=== PATIENT | male | born 1980 | race Caucasian/White ===

== ENCOUNTER 2020-10-16 19:41 | Emergency (ER) | payer BC, SELFPAY ==
[2020-10-16 19:43] VITALS: BP 128/80; PULSE 84; RESP 18; TEMP 37.2; O2SAT 98; BMI 23.7
[2020-10-16 19:52] VITALS: BMI 23.7
--- NOTE | 2020-10-16 19:55 | CT_ITS ---
PROCEDURE: CT ABDOMEN PELVIS W CON CLINICAL INDICATION: TAL ABD pain with nausea Right upper quadrant pain with nausea and diarrhea, left upper quadrant pain COMPARISON: No exams were available for comparison TECHNIQUE: IV Contrast: 75ML Isovue 370 Oral Contrast None Axial images obtained with sagittal and coronal reformats. All CT scans at the facility use one or more dose reduction, viz: automated exposure control, ma/kV adjustment per patient size (including targeted exams where dose is matched to indication, i.e. head), or iterative reconstruction technique. FINDINGS: LOWER THORAX: 7 mm nodular opacity is present in the right lung base laterally possibly due to an area of atelectasis.. ABDOMEN & PELVIS: Mild hepatic steatosis. 1 cm low-density lesion within the posterior superior aspect of the right hepatic lobe and a 6 mm low-density lesion within the anterior superior right hepatic lobe. The spleen, adrenal glands, pancreas, and kidneys have an unremarkable appearance. No evidence of appendicitis or diverticulitis. No intestinal obstruction or free air. No pelvic mass or abnormal fluid collection. Prior vasectomy. Suspect small bone islands in the left femoral head and left and right ischium. IMPRESSION: 1. No acute finding. 2. There are 2 nonspecific hypodense hepatic lesions within segment 7 and 8 possibly due to hemangiomas. Nonemergent MRI may confirm with hemangioma protocol if clinically warranted 3. 7 mm right lower lobe nodular opacity possibly due to atelectatic change. Follow-up may confirm. Dictated by: Kaiden Orozco MD 10/17/2020 06:25 Kaiden Orozco MD in [place] 10/17/2020 06:25
[2020-10-16 20:02] LABS: Microscopic, Urine URINE MICROSCOPIC (MICROSCOPIC)
[2020-10-16 20:08] LABS: Appearance,Urine CLEAR (Clear); Bilirubin,Urine Negative (Negative); Blood, Urine TRACE-I (Negative); Color,Urine YELLOW (Yellow); Glucose,Urine (UA) Negative (Negative); Ketones,Urine Negative (Negative); Leukocyte Esterase,Urine Negative (Negative); Nitrate,Urine Negative (Negative); Protein,Urine Negative (Negative); Specific Gravity, Urine >= 1.030 (1.005-1.030); Urobilinogen,Urine 0.2 EU/dl (0.2)
[2020-10-16 20:09] LABS: Chloride 102 mmol/L (98-107); Sodium 139 mmol/L (136-145)
--- NOTE | 2020-10-16 20:10 | PC.NURSE ---
Pt completed oral contrast, Radiology notified of completion time
[2020-10-16 20:12] LABS: Alanine Aminotransferase 29 U/L (12-78); Albumin Level 4.7 g/dl (3.5-5.0); Albumin/Globulin Ratio 1.2 (1.1-1.8); Alkaline Phosphatase 80 U/L (38-126); Aspartate Amino Transferase 34 U/L (17-59); Bilirubin,Direct 0.1 mg/dl (0.0-0.4); Bilirubin,Indirect 0.3 mg/dL (0.0-0.9); Bilirubin,Total 0.4 mg/dl (0.2-1.3); Bilirubin,Unconjugated 0.2 mg/dL (0.0-1.1); Blood Urea Nitrogen 22 mg/dl (9-20); Calcium 9.8 mg/dl (8.4-10.2); Carbon Dioxide 29 mmol/L (22.0-30.0); Creatinine Clearance Estimated 120 mL/min (50-200); Estimated Glomerular Filt Rate 83 ml/min (>60); GFR (African American) 100 ML/MIN (>60); Globulin 3.8 g/dL (1.3-3.2); Glucose 162 mg/dl (74-100); Total Protein,Serum 8.5 g/dl (6.3-8.2)
[2020-10-16 20:12] LABS: RBC,Urine Occasional #/hpf (0-3); WBC,Urine Occasional #/hpf (0-3)
[2020-10-16 20:13] VITALS: BP 119/76; PULSE 79
[2020-10-16 20:16] LABS: Basophils # 0.1 K/mm3 (0-0.2); Basophils % 1.1 % (0.1-2.0); Eosinophils # 0.1 K/mm3 (0.0-0.4); Eosinophils % 2.1 % (0.1-12.0); Hematocrit 48.5 % (42.0-52.0); Hemoglobin 15.4 g/dL (14.1-18.0); Lymphocytes # 2.8 K/mm3 (0.7-4.5); Lymphocytes % 42.6 % (10-50); Mean Corpuscular HGB Conc 31.7 g/dL (31.8-35.4); Mean Corpuscular Hemoglobin 29.3 pg (27.0-31.2); Mean Corpuscular Volume 92.5 fl (80-94); Mean Platelet Volume 7.2 fl (7.4-10.4); Monocytes # 0.3 K/mm3 (0.1-1.0); Monocytes % 5.1 % (1.7-9.3); Neutrophils # 3.2 K/mm3 (1.8-7.8); Neutrophils % 49.1 % (37.0-80.0); Platelet Count 244 K/mm3 (142-424); Red Blood Count 5.25 M/mm3 (4.60-6.20); Red Cell Distribution Width 13.2 % (11.5-17.5); White Blood Count 6.5 K/mm3 (4.8-10.8)
[2020-10-16 20:18] LABS: C-Reactive Protein 1.3 mg/L (0-4)
[2020-10-16 20:35] LABS: Procalcitonin 0.073 ng/mL (0.0-2.0)
[2020-10-16 20:43] VITALS: BP 120/81; PULSE 81
[2020-10-16 20:44] LABS: Erythrocyte Sedimentation Rate 7 mm/hr (0-15)
[2020-10-16 21:13] VITALS: BP 118/74; PULSE 69; RESP 18; O2SAT 100
--- NOTE | 2020-10-16 21:22 | HMH.EDNVD ---
ED Disposition Clinical Impression: Abdominal pain Qualifiers: Abdominal location: right upper quadrant Qualified Code(s): R10.11 - Right upper quadrant pain Disposition: Home, Self-Care Condition on Discharge: Good Instructions: DI for Acute Abdominal Pain Additional Instructions: call pcp for follow up Referrals: Renetta Louis [Primary Care Provider] - - Critical Care Critical Care Time: No Attestation: On 10/16/20, the high probability of a clinically significant, sudden or life threatening deterioration of the following system(s) required my full and direct attention, intervention and personal management. The time I documented below is in addition to time spent performing reported procedures but includes the following listed in this critical care notation. Medical Decision Making - Medical Records Medical records reviewed: Yes: I reviewed the patient's medical records. - Kevin Inquiry Pt receiving controlled substance: No Vital Signs: 10/16/20 19:43 10/16/20 20:13 10/16/20 20:43 Temperature 98.9 F Temperature Source Oral Pulse Rate [Radial] 84 79 81 Respiratory Rate 18 Blood Pressure [Right Arm] 128/80 119/76 120/81 Blood Pressure Mean [Right Arm] 96 90 94 Blood Pressure Source [Right Arm] Automatic Cuff Automatic Cuff Automatic Cuff Blood Pressure Position [Right Arm] Supine 02 Sat by Pulse Oximetry 98 Oxygen Delivery Method Room Air 10/16/20 21:13 10/16/20 22:00 Temperature Temperature Source Pulse Rate [Radial] 69 76 Respiratory Rate 18 Blood Pressure [Right Arm] 118/74 119/60 Blood Pressure Mean [Right Arm] 88 79 Blood Pressure Source [Right Arm] Automatic Cuff Automatic Cuff Blood Pressure Position [Right Arm] 02 Sat by Pulse Oximetry 100 100 Oxygen Delivery Method Room Air Room Air - Lab Data Lab results reviewed: Yes: I reviewed the patient's lab results. Lab Results 10/16/20 19:45: Urine Color Yellow, Urine Appearance Clear, Urine pH 6.0, Ur Specific [place] >= 1.030, Urine Protein Negative, Urine Glucose (UA) Negative, Urine Ketones Negative, Urine Blood Trace-i, Urine Nitrate Negative, Urine Bilirubin Negative, Urine Urobilinogen 0.2, Ur Leukocyte Esterase Negative, Urine RBC Occasional, Urine WBC Occasional 10/16/20 19:55: WBC 6.5, RBC 5.25, Hgb 15.4, Hct 48.5, MCV 92.5, MCH 29.3, MCHC 31.7 L, RDW 13.2, Plt Count 244, MPV 7.2 L, Neut % (Auto) 49.1, Lymph % (Auto) 42.6, [place] % (Auto) 5.1, Eos % (Auto) 2.1, Baso % (Auto) 1.1, Neut # (Auto) 3.2, Lymph # (Auto) 2.8, [place] # (Auto) 0.3, Eos # (Auto) 0.1, Baso # (Auto) 0.1, ESR 7 10/16/20 19:55: Sodium 139, Potassium 4.0, Chloride 102, Carbon Dioxide 29, Anion Gap 12.0, BUN 22 H, Creatinine 1.00, Estimated Creat Clear 120, Estimated GFR 83, Est GFR ( Amer) 100, Glucose 162 H, Calcium 9.8, Total Bilirubin 0.4, Direct Bilirubin 0.1, Conjugated Bilirubin 0.0, Indirect Bilirubin 0.3, Unconjugated Bilirubin 0.2, AST 34, ALT 29, Alkaline Phosphatase 80, C-Reactive Protein 1.3, Total Protein 8.5 H, Albumin 4.7, Globulin 3.8 H, Albumin/Globulin Ratio 1.2, Procalcitonin 0.073 10/16/20 19:55: Amylase 57, Lipase 34 Result diagrams: 10/16/20 19:55 10/16/20 19:55 Orders (Tests/Meds): ED MEDICATIONS Generic Name Dose Route Start Last Admin Trade Name Freq PRN Reason Stop Dose Admin Sodium Chloride 1,000 mls @ 999 mls/hr 10/16/20 20:00 10/16/20 20:01 Sod Chlor 0.9% 1000ml Bag IV 10/16/20 21:00 999 mls/hr .Q1H1M MAURA Administration Discontinued Medications Generic Name Dose Route Start Last Admin Trade Name Freq PRN Reason Stop Dose Admin Diatrizoate Meglum/Diatrizoate Sod 30 ml 10/16/20 19:55 10/16/20 20:01 Diatrizoate Avelina 66% & Diatrizoate Na 10% 30ml Udc PO 10/16/20 19:56 30 ml ONCE ONE Administration Diatrizoate Meglum/Diatrizoate Sod 20 ml 10/16/20 21:48 10/16/20 21:49 Diatrizoate Meglumine(Gastrografin) 66%-10% 120ml PO 10/16/20 21:49 20 ml ONCE ONE Administration Iopami
[2020-10-16 21:43] LABS: Amylase 57 U/L (30-110); Lipase 34 U/L (23-300)
--- NOTE | 2020-10-16 21:53 | PC.NURSE ---
pt returned from ct scan via wheelchair
[2020-10-16 22:00] VITALS: BP 119/60; PULSE 76; O2SAT 100
[2020-10-16 22:32] VITALS: BP 120/76; PULSE 70; RESP 16; TEMP 36.7
== END 2020-10-16 22:36 | disposition home or self-care (01) ==
PROVIDERS: Emergency Medicine; Emergency Provider Emergency Medicine; PCP Nurse Practitioner Family
DX: R10.11 Right upper quadrant pain (principal); R11.0 Nausea
CPT/HCPCS: 74177; 80053; 80076; 81001; 82150; 83690; 84145; 85025; 85651; 86140; 96365; 96375; 99284; J2405; Q9967

== ENCOUNTER 2021-03-28 16:09 | Emergency (ER) | payer BC, SELFPAY ==
[2021-03-28 16:11] VITALS: BP 122/82; PULSE 77; RESP 14; O2SAT 99; BMI 25.7
--- NOTE | 2021-03-28 16:35 | XR_ITS ---
PROCEDURE INFORMATION: Exam: XR Right Hip Exam date and time: 03/28/2021 4:35 PM Age: 40 years old Clinical indication: Injury or trauma; Fall; Bleeding/hemorrhage and blunt trauma (contusions or hematomas); Pelvic region; Patient HX: Patient fell through an old porch. Right hip pain. TECHNIQUE: Imaging protocol: XR Right hip. Views: 2 or 3 views hip with pelvis when performed. COMPARISON: CT ABDOMEN PELVIS W CON 10/16/2020 9:40 PM FINDINGS: Bones/joints: Unremarkable. No acute fracture. Soft tissues: Unremarkable. Surgical clips noted over the scrotum. IMPRESSION: No acute findings.
--- NOTE | 2021-03-28 16:35 | XR_ITS ---
PROCEDURE INFORMATION: Exam: XR Right Tibia and Fibula Exam date and time: 03/28/2021 4:35 PM Age: 40 years old Clinical indication: Injury or trauma; Fall; Bleeding/hemorrhage and blunt trauma; Lower leg; Patient HX: Patient fell through a porch. Abrasions over right lower anterior leg. TECHNIQUE: Imaging protocol: XR Right tibia and fibula. Views: 2 views. COMPARISON: No relevant prior studies available. FINDINGS: Bones/joints: Normal. Soft tissues: Normal. IMPRESSION: No acute findings.
--- NOTE | 2021-03-28 16:35 | PC.NURSE ---
rad notified of xray orders
--- NOTE | 2021-03-28 17:14 | HMH.EDGENADL ---
ED Disposition Clinical Impression: Contusion of right lower leg Qualifiers: Encounter type: initial encounter Qualified Code(s): S80.11XA - Contusion of right lower leg, initial encounter Fall Qualifiers: Encounter type: initial encounter Qualified Code(s): W19.XXXA - Unspecified fall, initial encounter Disposition: Home, Self-Care Condition on Discharge: Good Instructions: DI for Contusion Additional Instructions: You have been evaluated for fall, right lower leg injury, contusion. Please use Anthony wrap for comfort. Take Tylenol and Motrin for pain and swelling. Follow-up with your primary care doctor. Return to the emergency department at once for any new or worsening symptoms. Referrals: Renetta Louis [Primary Care Provider] - Time of Disposition: 17:35 - Critical Care Critical Care Time: No Attestation: On 03/28/21, the high probability of a clinically significant, sudden or life threatening deterioration of the following system(s) required my full and direct attention, intervention and personal management. The time I documented below is in addition to time spent performing reported procedures but includes the following listed in this critical care notation. Medical Decision Making - Medical Records Medical records reviewed: Yes: I reviewed the patient's medical records. - Kevin Inquiry Pt receiving controlled substance: No Vital Signs: 03/28/21 16:11 Pulse Rate [Left Radial] 77 Respiratory Rate 14 Blood Pressure [Left Arm] 122/82 Blood Pressure Mean [Left Arm] 95 Blood Pressure Source [Left Arm] Automatic Cuff Blood Pressure Position [Left Arm] Sitting 02 Sat by Pulse Oximetry 99 Oxygen Delivery Method Room Air Orders (Tests/Meds): ED MEDICATIONS Discontinued Medications Generic Name Dose Route Start Last Admin Trade Name Niels PRN Reason Stop Dose Admin Acetaminophen 650 mg 03/28/21 17:18 Acetaminophen 325mg Tab PO 03/28/21 17:19 ONCE ONE Medical Decision Narrative: In summary this is a 40-year-old male presenting to the emergency department with injury to his right lower leg. Patient clinically stable on arrival. Vital signs within normal limits. He has abrasions over the cox. Concern for contusion or fracture. X-rays of the right cox and hip obtained in triage. Patient has taken ibuprofen. Given Tylenol. X-rays show no bony abnormalities. He is up-to-date on tetanus. Wounds irrigated and triple antibiotic ointment applied. Patient given Anthony wrap for comfort. Recommended close PCP follow-up. Rest, compression, elevation. Given return precautions. General Adult HPI - General Chief complaint: Fall Stated complaint: AO 0824@1530 injuredR Foot Time Seen by Provider: 03/28/21 17:14 Mode of Arrival: Ambulatory Limitations: No Limitations Description of Symptoms (Recalled from ER Triage Doc. 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 Pt reports he fell through part of the floor. Pt able to bear weight but states painful to bear weight. Abrasions noted to R cox area. Pt denies numbness, tingling and decreased sensation - History of Present Illness HPI narrative: 40-year-old male presenting to the emergency department with right lower leg injury. He was working on his porch when he fell through part of the floor. His right cox struck a hard stone wall. He has abrasions to his cox. Had immediate pain and swelling. Initially was unable to walk secondary to pain. He has throbbing pain in his right hip. No pain in the knee or ankle. Ibuprofen prior to arrival. Most recent tetanus shot was in the last 7 years. Denies other injuries, head injury. No chest pain, shortness of breath, nausea, vomiting. No numbness, weakness, tingling in his right foot. - Related Data Home Medications Medication Instructions Recorded Confirmed No Known Home Medications 10/16/20 10/16/20 Allergies Allergy/AdvReac Type
[2021-03-28 17:50] VITALS: BP 142/86; PULSE 67; RESP 16; TEMP 36.7; O2SAT 97
== END 2021-03-28 17:51 | disposition home or self-care (01) ==
PROVIDERS: Emergency Provider Emergency Medicine; PCP Nurse Practitioner Family
DX: S80.11XA Contusion of right lower leg, initial encounter (principal); W17.89XA Other fall from one level to another, initial encounter; Y92.018 Other place in single-family (private) house as the place of occurrence of the external cause
CPT/HCPCS: 73502; 73590; 99282

== ENCOUNTER 2022-07-09 09:37 | Emergency (ER) | payer BC, SELFPAY ==
[2022-07-09 10:30] VITALS: BP 140/89; PULSE 81; RESP 19; TEMP 36.8; O2SAT 98; BMI 26.3
--- NOTE | 2022-07-09 10:52 | EXP.UTC ---
Discharge Plan Disposition Patient Disposition: Home, Self-Care Condition: Good Prescriptions Prescriptions: New oseltamivir [Tamiflu] 75 mg capsule 75 mg PO BID Qty: 10 0RF dfrpesvdekecqun-mxzexuybq-NS [Bromfed DM] 2-30-10 mg/5 mL Syrup 10 ml PO Q4H PRN (Reason: Cough) Qty: 240 0RF Referrals Follow up/Referrals: Renetta Louis [Primary Care Provider] - See instructions Activity Restrictions/Add. Instructions Additional Instructions/Restrictions: Start Tamiflu today if you are going to take it. Discussed risk and possible benefits. Lots of rest Increase Fluids water, Gatorade, powerade, pedialyte,if /toddler/child Alternate Tylenol and / or ibuprofen as discussed for fever, aches, chills Follow up IMMEDIATELY with your family doctor for new or worsening Symptoms OR no noticeable improvement over the next 48-72 hours, 911 for difficulty or breathing You or your child area contagious until no fever, aches, chills for 24 hours with medication for symptoms Help Prevent the spread of influenza: ?Wash your hands often. Use soap and water. Wash your hands after you use the bathroom, change a child's diapers, or sneeze. Wash your hands before you prepare or eat food. Use gel hand cleanser that has 60% alcohol, when soap and water are not available. Do not touch your eyes, nose, or mouth unless you have washed your hands first. Cover your mouth when you sneeze or cough. Cough into a tissue or the bend of your arm. If you use a tissue, throw it away immediately and wash your hands. Clean shared items with a germ-killing home restoration service cleaner. Clean table surfaces, doorknobs, and light switches. Do not share towels, silverware, and dishes with people who are sick. Wash bed sheets, towels, silverware, and dishes with soap and water. Wear a mask over your mouth and nose if you are sick. The face mask may help protect others from becoming infected with the flu. Wear the mask when in common areas of your home or if you seek care with a healthcare provider. Stay away from others if you are sick. Stay at home until 24 hours after your fever and symptoms are gone. Clinical Impressions Clinical Impression: Flu-like symptoms Stand Alone Forms Stand Alone Forms: Work/School Release Instructions Patient Instructions: Influenza, DI for Influenza -- Adult Discharge ED Provider: Latrice Johnson [facility] [place] General Stated complaint: Headache, sore throat, cough, flu test Time Seen by Provider: 07/09/22 10:52 History of Present Illness Provider Complaint: Patient state that got sick on Saturday State that now he is having symptoms State that he has been having body aches, chills, fever and headache and feels like he has the flu Related Data Previous Rx's Medication Instructions Recorded iswtsofmmwohkdj-fckmncmyvufznfm-JD 10 ml PO Q4H PRN Cough #240 mL 07/09/22 2 mg-30 mg-10 mg/5 mL oral syrup (Bromfed DM) oseltamivir 75 mg capsule (Tamiflu) 75 mg PO BID #10 caps 07/09/22 Allergies Allergy/AdvReac Type Severity Reaction Status Date / Time No Known Allergies Allergy Verified 10/19/18 19:02 [facility] Disclaimer: The information contained in this section may have been updated after the patient was seen, as this information can be updated by other users. Medical History (Updated 07/09/22 @ 10:55 by Latrice Johnson APRN) No significant past medical history Social History Smoking Status: Never smoker alcohol intake: current current occupational status: employed Travel in the last 8 weeks: None current occupation: [employer] caffeine: Yes ROS Obtained: Yes All systems reviewed & no additional complaints except as documented and Yes Systems reviewed as appropriate & no additional complaints except as documented Constitutional Constitutional: Repo
[2022-07-09 10:57] LABS: UTC Influenza A Antigen Negative (Negative); UTC Influenza B Antigen Negative (Negative)
[2022-07-09 10:59] VITALS: BP 140/89; PULSE 81; RESP 19; TEMP 36.8; O2SAT 98
== END 2022-07-09 11:12 | disposition home or self-care (01) ==
PROVIDERS: Emergency Provider Nurse Practitioner; PCP Nurse Practitioner Family
DX: R68.89 Other general symptoms and signs (principal)
CPT/HCPCS: 87804; 99212; G0463

== ENCOUNTER 2023-02-11 12:02 | Emergency (ER) | payer BC, SELFPAY ==
[2023-02-11] VITALS (8 sets, daily range): BP systolic 129–165; BP diastolic 80–110; PULSE 60–67; RESP 16–18; TEMP 36.7; O2SAT 95–99; BMI 26.9; BMI 28.5
--- NOTE | 2023-02-11 12:03 | ECG_ITS ---
APPROVED REPORT Exam: Resting ECG HR:62 bpm ECG Measurements Heart Rate 62 AXES UT 160 P 3 QRSd 102 QRS -9 QT 374 T 17 QTc 380 Conclusion SINUS RHYTHM NORMAL ECG UNCONFIRMED REPORT Electronically signed by : Omar Oglesby MD 02/11/2023 13:52:20
--- NOTE | 2023-02-11 12:09 | XR_ITS ---
FINAL REPORT CLINICAL HISTORY: soa FINDINGS: SINGLE VIEW CHEST The heart size is normal. The mediastinum is normal. The lungs are clear. There is no pneumothorax. IMPRESSION: No acute cardiopulmonary process. Reviewed, Interpreted and Dictated by Gopi Currie III, MD Transcribed by Rosalva Ames Authenticated and [facility]
[2023-02-11 12:28] LABS: Basophils # 0.1 K/mm3 (0-0.2); Basophils % 0.9 % (0.1-2.0); Eosinophils # 0.2 K/mm3 (0.0-0.4); Eosinophils % 2.4 % (0.1-12.0); Hematocrit 47.4 % (42.0-52.0); Hemoglobin 15.6 g/dL (14.1-18.0); Lymphocytes # 2.7 K/mm3 (0.7-4.5); Lymphocytes % 30.5 % (10-50); Mean Corpuscular Hemoglobin 28.8 pg (27.0-31.2); Mean Corpuscular Volume 87.3 fl (80-94); Mean Platelet Volume 7.1 fl (7.4-10.4); Monocytes # 0.4 K/mm3 (0.1-1.0); Monocytes % 4.9 % (1.7-9.3); Neutrophils # 5.3 K/mm3 (1.8-7.8); Neutrophils % 61.3 % (37.0-80.0); Platelet Count 292 K/mm3 (142-424); Red Blood Count 5.43 M/mm3 (4.60-6.20); Red Cell Distribution Width 13.3 % (11.5-17.5); White Blood Count 8.7 K/mm3 (4.8-10.8)
[2023-02-11 12:34] LABS: Alanine Aminotransferase 30 U/L (12-78); Albumin Level 4.6 g/dl (3.5-5.0); Albumin/Globulin Ratio 1.2 (1.1-1.8); Alkaline Phosphatase 102 U/L (38-126); Aspartate Amino Transferase 34 U/L (17-59); Bilirubin,Total 0.6 mg/dl (0.2-1.3); Blood Urea Nitrogen 19 mg/dl (9-20); Calcium 9.5 mg/dl (8.4-10.2); Carbon Dioxide 29 mmol/L (22.0-30.0); Chloride 102 mmol/L (98-107); Creatinine Clearance Estimated 108 mL/min (50-200); Estimated Glomerular Filt Rate 66 ml/min (>60); GFR (African American) 80 ML/MIN (>60); Globulin 3.7 g/dL (1.3-3.2); Glucose 92 mg/dl (74-100); Sodium 139 mmol/L (136-145); Total Protein,Serum 8.3 g/dl (6.3-8.2)
--- NOTE | 2023-02-11 12:42 | HMH.EDGENADL ---
Discharge Plan Disposition Patient Disposition: Home, Self-Care Chief Complaint: Chest Pain Prescriptions Prescriptions: No Action oseltamivir [Tamiflu] 75 mg capsule 75 mg PO BID Qty: 10 0RF qquvddrrkhtlkju-itelqojpg-XV [Bromfed DM] 2-30-10 mg/5 mL Syrup 10 ml PO Q4H PRN (Reason: Cough) Qty: 240 0RF Referrals Follow up/Referrals: Catrachito Fletcher APRN [Primary Care Provider] - See instructions Activity Restrictions/Add. Instructions Additional Instructions/Restrictions: Return for worsening pain or any other concerns within the next 8 hours otherwise follow-up with your primary care physician within the next few days Clinical Impressions Clinical Impression: Chest pain Discharge ED Provider: Donald Barboza General Adult HPI General Chief complaint: Chest Pain Stated complaint: chest pain Time Seen by Provider: 02/11/23 12:05 Mode of Arrival: Ambulatory Source of Information: Patient Limitations: No Limitations Description of Symptoms (Recalled from ER Triage Doc. by RN): Pt reports began having L sided chest pain yesterday approx 3 pm, states he stood up got dizzy and began having chest pain. Pt describes L sided chest pain radiating down in upper stomach. Pt reports multiple dizzy spells yesterday and today. Pt is clammy. History of Present Illness HPI narrative: 42-year-old male presents with left-sided chest pain since about 3 PM he has been going on for about 12 hours. He has been dizzy and may have mild chest pain left-sided throbbing is getting better radiating toward his upper stomach. No dizziness nausea vomiting diarrhea fever or chills. No history of cardiac issues or concerns he has had been having heart racing as well. No difficulty breathing. No coughing up blood recent blood clots leg swelling or travel Related Data Previous Rx's Medication Instructions Recorded zcudwpfieezjzti-cjyorueytdurpnv-YR 10 ml PO Q4H PRN Cough #240 mL 07/09/22 2 mg-30 mg-10 mg/5 mL oral syrup (Bromfed DM) oseltamivir 75 mg capsule (Tamiflu) 75 mg PO BID #10 caps 07/09/22 Allergies Allergy/AdvReac Type Severity Reaction Status Date / Time No Known Allergies Allergy Verified 10/19/18 19:02 [facility] Disclaimer: The information contained in this section may have been updated after the patient was seen, as this information can be updated by other users. Medical History (Updated 02/11/23 @ 15:05 by Donald Barboza MD) No significant past medical history Social History Smoking Status: Never smoker alcohol intake: current current occupational status: employed Travel in the last 8 weeks: None current occupation: [employer] caffeine: Yes ROS Obtained: Yes All systems reviewed & no additional complaints except as documented Constitutional Constitutional: Denies fatigue and Denies headache(s) Eyes Eyes: Denies dry eyes ENT Ears, Nose, Mouth, and Throat: Denies dizziness and Denies headache(s) Cardiovascular Cardiovascular: Denies diaphoresis and Denies dyspnea Respiratory Respiratory: Denies dyspnea and Denies wheezing Gastrointestinal Gastrointestingal: Denies coffee ground emesis Genitourinary Male Genitourinary: Denies flank pain Musculoskeletal Musculoskeletal: Denies arthralgias Integumentary/Breasts Skin/Breast: Denies redness Neurologic Neurologic: Denies dizziness and Denies headache(s) Endocrine Endocrine: Denies fatigue Allergic/Immunologic Allergic/Immunologic: Denies wheezing Physical Exam General General appearance: alert and in no apparent distress Eye Eye exam: Present PERRL and EOMI ENT ENT exam: Present normal exam and normal oropharynx Neck Neck exam: Present normal inspection Chest Chest inspection: Present symmetric chest wall rise Respiratory Respiratory exam: Present normal lung sounds bilaterally; Absent respiratory distress Cardiovascular Cardiovascular exam: Present regular rate and normal rhythm Abdominal Exam Abdominal exam: Present soft;
[2023-02-11 13:16] LABS: Troponin I < 0.01 ng/ml (0.00-0.034)
--- NOTE | 2023-02-11 14:14 | PC.NURSE ---
notified lab of green top tube being sent to lab for second troponin
[2023-02-11 15:36] LABS: Troponin I < 0.01 ng/ml (0.00-0.034)
== END 2023-02-11 15:16 | disposition home or self-care (01) ==
PROVIDERS: Emergency Provider Emergency Medicine; PCP Nurse Practitioner Family
DX: R07.9 Chest pain, unspecified (principal); R10.10 Upper abdominal pain, unspecified; R42 Dizziness and giddiness
CPT/HCPCS: 71045; 80053; 83735; 84443; 84484; 85025; 93005; 99285

== ENCOUNTER 2023-10-21 08:23 | Outpatient (CLI) | payer BC, SELFPAY ==
--- NOTE | 2023-10-21 08:51 | CT_ITS ---
FINAL REPORT CLINICAL HISTORY: LEFT LOWER QUADRANT PAIN COMPARISON: 10/16/2020 FINDINGS: CT OF THE ABDOMEN AND PELVIS WITH CONTRAST Axial CT images of the abdomen and pelvis were obtained after the administration of oral and iv contrast. Coronal and sagittal reformatted images were also obtained and reviewed.This study was performed with techniques to keep radiation doses as low as reasonably achievable (ALARA). Individualized dose reduction techniques using automated exposure control or adjustment of mA and/or kV according to the patient's size were employed. Abdomen: There are several small nodules in the lung bases, the largest adjacent to the right hemidiaphragm that measures 7 mm in size. This was present on the prior CT of 2020, and is stable in size. There are several other small nodules identified, visually stable. There is mild scarring or atelectasis in the lung bases. The heart is normal in size. There is an 11 mm mass in the posterior liver dome which is stable in size when compared to the prior exam, and shows partial contrast-enhancement. Would favor that this represents hemangioma. There is a 6 mm mass in the mid liver dome, similar to the prior exam, also may represent a hemangioma. The spleen is unremarkable. No adrenal mass is present. The pancreas has an unremarkable appearance. The kidneys are normal, without evidence of mass or hydronephrosis. The aorta is normal in caliber. There is no free fluid or adenopathy. No mass or abnormal fluid collection is seen. Pelvis: The appendix is normal in appearance. The urinary bladder is remarkable for mild nonspecific bladder wall thickening, that may be inflammatory. No inflammatory process is seen. There is no evidence of mass or adenopathy. There is no evidence of bowel obstruction. There is an L5-S1 left foraminal disc protrusion with probable left S1 nerve root impingement. IMPRESSION: Several small nodules in the lung bases, stable since the prior exam of 2020. 2 liver lesions as described, favor hemangiomas. They are stable in size since the prior CT. Mild nonspecific bladder wall thickening, which may be inflammatory. Left foraminal L5-S1 disc protrusion with probable left S1 nerve root impingement, if clinically indicated MRI would be helpful for further evaluation. Reviewed, Interpreted and Dictated by Gopi Currie III, MD Transcribed by Janet Lobo Authenticated and [facility]
[2023-10-21] MEDS: SODIUM CHLORIDE 0.9% 10ML SYR (RAD ONLY) 10 ML IV (09:20)
[2023-10-21] MEDS: IOPAMIDOL-370 (76%);100ML BOTTLE 75 ML IV (09:20)
== END 2023-10-21 23:59 ==
LOC: RAD 08:24
PROVIDERS: PCP Nurse Practitioner Family; Visit Provider Nurse Practitioner Family
DX: R10.32 Left lower quadrant pain (principal)
CPT/HCPCS: 74177; Q9967